=== PATIENT | male | born 2000 | race Two or more races ===

== ENCOUNTER 2022-09-28 17:47 | Emergency (ER) | payer OTHER ==
[~2022-09-28] VITALS: Ht 162.6 cm; Wt 81.6 kg
== END 2022-09-28 18:27 | disposition home or self-care (01) ==
LOC: ER 17:47
DX: M54.50 Low back pain, unspecified (principal)

== ENCOUNTER → 2025-04-26 | Emergency (ER) | payer OTHER ==
[~2025-04-26] VITALS: Ht 162.6 cm; Wt 94.8 kg
[~2025-04-26] MED LIST: 0.9 % SODIUM CHLORIDE 1,000 ML IV ONE; CIPROFLOXACIN IN 5 % DEXTROSE 400 MG/200 ML PIGGYBAG IV ONE; CIPROFLOXACIN IN 5 % DEXTROSE 400 MG/200 ML PIGGYBAG IV STA; FAMOTIDINE/PF 20 MG/2 ML VIAL IV PUSH STA; FAMOTIDINE/PF 20 MG/2 ML VIAL ONE; HYOSCYAMINE SULFATE 0.125 MG TAB.SUBL ONE; HYOSCYAMINE SULFATE 0.125 MG TAB.SUBL SL STA; INTESTINEX680 M2 PO; LACTOBACILLUS ACIDOPHILUS 1 CAP CAP PO ONE; LACTOBACILLUS ACIDOPHILUS 1 CAP CAP PO STA; PEPCID40 MG PO; PROMETHAZINE HCL 50 MG/ML AMPUL IM ONE; PROMETHAZINE HCL 50 MG/ML AMPUL IM STA; ZOFRAN8 MG PO
[2025-04-26 04:22] LABS: BASO % 0.3 % (0.1-1.2); EOS # 0.03 (0.04-0.54); EOS % 0.3 % (0.7-7.0); LYMPH # 0.70 (1.18-3.74); LYMPH % 5.9 % (19.3-53.1); MEAN PLATELET VOLUME 12.30 fl (9.4-12.4); MONO # 0.73 (0.24-0.82); MONO % 6.2 % (4.7-12.5); NEUT # 10.29 (1.56-6.13); NEUT % 87.1 % (34.0-71.1); RED CELL DISTRIBUTION WIDTH 13.2 % (11.6-14.4)
[2025-04-26 04:47] LABS: BUN CREA RATIO 14.0 (7.0-25.0); CREATININE SERUM 1.11 mg/dL (0.70-1.30); GFR 80.71; GLUCOSE FASTING 114.0 mg/dL (65-100); OSMOLALITY SERUM 289.0 MOSM/KG (275-295)
[2025-04-26 06:00] LABS: URINE APPEARANCE Turbid; URINE BILIRRUBIN Negative (NEGATIVE); URINE BLOOD Negative; URINE COLOR Dark Yellow; URINE GLUCOSE Negative (NEGATIVE); URINE KETONE 15 (NEGATIVE); URINE LEUKOCYTE Negative; URINE NITRATE Negative; URINE PROTEIN Trace (NEGATIVE); URINE UROBILINOGEN 0.2 E.U./dl
[2025-04-26 06:04] LABS: URINE BACTERIA 112.1 uL (0.0-1933); URINE CAST 1.84 uL (0.0-1.40); URINE EPITHELIAL CELLS 11.6 uL (0.0-38.8); URINE RBC 2.6 uL (0.0-20.8); URINE WBC 14.1 uL (0.0-23.2)
[2025-04-26 06:47] LABS: URINE CRYSTALS MANY /HPF
== END | disposition home or self-care (01) ==
LOC: ER 02:29
PROVIDERS: General Practice
DX: K52.89 Other specified noninfective gastroenteritis and colitis (principal)